=== PATIENT | male | born 1965 | race Caucasian/White ===

== ENCOUNTER 2021-10-01 08:08 | Outpatient (CLI) | payer OTHER, SELFPAY ==
[2021-10-01 11:19] LABS: Albumin* 3.7 g/dL (3.3-5.0)
[2021-10-01 11:20] LABS: Chloride* 105 mmol/L (96-114); Potassium* 4.4 mmol/L (3.6-5.1)
[2021-10-01 11:22] LABS: Alanine Aminotransferase* 24 U/L (4-50); Alkaline Phosphatase* 97 U/L (40-150); Aspartate Amino Transferase* 27 U/L (12-35); Bilirubin Total* 0.8 mg/dL (0.1-1.5); Blood Urea Nitrogen* 14 mg/dL (7-30); Carbon Dioxide* 34 mmol/L (20-32); Cholesterol* 167 mg/dL (90-199); Creatinine* 0.8 mg/dL (0.5-1.5); Estimated Glomerular Filt Rate 104.51; Glucose* 104 mg/dL (60-115); Total Protein* 6.3 g/dL (6.0-8.3)
[2021-10-01 11:23] LABS: Calcium* 8.5 mg/dL (8.4-10.6); HDL Cholesterol* 43 mg/dL (>=40); LDL Cholesterol Calculated 107 mg/dL (<100); Triglycerides* 87 mg/dL (40-149)
[2021-10-01 11:50] LABS: PSA Screen* 1.11 ng/mL (0.10-4.00)
[2021-10-01 13:08] LABS: Sodium* 138 mmol/L (135-149)
== END 2021-10-01 08:09 | disposition home or self-care (01) ==
PROVIDERS: PCP Family Medicine; Visit Provider Family Medicine
DX: Z00.00 Encounter for general adult medical examination without abnormal findings (principal); E78.5 Hyperlipidemia, unspecified; E66.9 Obesity, unspecified; Z12.5 Encounter for screening for malignant neoplasm of prostate
CPT/HCPCS: 80053; 80061; 84153